=== PATIENT | female | born 1965 | race Caucasian/White ===

== ENCOUNTER 2018-01-08 22:17 | Emergency (ER) | payer BC ==
[2018-01-08] MEDS ORDERED: IPRATROPIUM-ALBUTEROL 3 ML NEB INHALATION STA (22:48)
--- NOTE | 2018-01-08 22:56 | ED ---
URI HPI - General Chief Complaint: Upper Respiratory Infection Stated Complaint: Congested Time Seen by Provider: 01/08/18 22:39 Source: patient, RN notes reviewed Mode of arrival: ambulatory Limitations: no limitations - History of Present Illness Initial Comments: This is a 52-year-old female who states she had the onset 3 days ago of sore throat or sinus pain sinus congestion plugged up ears a cough with yellow phlegm yellow rhinorrhea body aches. She states she did get a flu shot last week. She has a nausea vomiting diarrhea. She has fullness in her sinuses she states patient also states she has some right upper quadrant "liver pain" MD Complaint: fever, cough, sore throat, nasal congestion, other - Related Data Home Medications Medication Instructions Recorded Confirmed Acetaminophen [Tylenol] 650 mg PO Q4H PRN 01/08/18 01/08/18 Albuterol Nebulized [Ventolin 2.5 mg INHALATION RT-Q4H PRN 01/08/18 01/08/18 Nebulized] Calcium/Magnesium 2 tab PO TID PRN 01/08/18 01/08/18 Chlorpheniramine Maleate 4 mg PO Q4H PRN 01/08/18 01/08/18 [Chlor-Trimeton] FLUoxetine HCL [PROzac] 80 mg PO DAILY 01/08/18 01/08/18 Gabapentin [Neurontin] 300 mg PO QID 01/08/18 01/08/18 Hydrochlorothiazide [Hydrodiuril] 25 mg PO DAILY 01/08/18 01/08/18 Ibuprofen [Motrin] 600 mg PO Q6H PRN 01/08/18 01/08/18 Multivitamins, Thera [Multivitamin 1 tab PO DAILY 01/08/18 01/08/18 (formulary)] Propranolol [Inderal] 20 mg PO TID 01/08/18 01/08/18 Rylanta 30 ml PO Q4H PRN 01/08/18 01/08/18 Thiamine [Vitamin B-1] 100 mg PO DAILY 01/08/18 01/08/18 guaiFENesin [guaiFENesin Oral 200 mg PO Q4H PRN 01/08/18 01/08/18 Solution] traZODone HCL 50 - 150 mg PO HS 01/08/18 01/08/18 traZODone HCL [Desyrel] 50 - 100 mg PO HS 01/08/18 01/08/18 Previous Rx's Medication Instructions Recorded Amoxicillin/Potassium Clav 1 tab PO Q12HR #20 tab 01/09/18 [Augmentin 875-125 Tablet] Benzonatate [Tessalon Perles] 200 mg PO AC-TID #21 capsule 01/09/18 Allergies Allergy/AdvReac Type Severity Reaction Status Date / Time pioglitazone [From Actos] Allergy Dyspnea Verified 01/08/18 23:10 codeine AdvReac Nausea & Verified 01/08/18 23:10 Vomiting Review of Systems ROS Statement: Those systems with pertinent positive or pertinent negative responses have been documented in the HPI. ROS Other: All systems not noted in ROS Statement are negative. Past Medical History Past Medical History: Asthma Additional Past Medical History / Comment(s): Detox- alcohol History of Any Multi-Drug Resistant Organisms: None Reported Past Surgical History: Adenoidectomy, Bariatric Surgery, Orthopedic Surgery, Tonsillectomy Additional Past Surgical History / Comment(s): ENT Past Psychological History: Anxiety, Depression Smoking Status: Never smoker Past Alcohol Use History: Heavy Past Drug Use History: None Reported General Exam - General Exam Comments Initial Comments: This is a well-developed well-nourished awake alert oriented 3 female Limitations: no limitations General appearance: alert, in no apparent distress Head exam: Present: atraumatic, normocephalic, normal inspection Eye exam: Present: normal appearance, PERRL, EOMI. Absent: scleral icterus, conjunctival injection, periorbital swelling ENT exam: Present: other (Boggy swollen nasal mucosa both TMs are dull and mildly erythematous. Oropharynx reveals no exudates tonsils are absent) Neck exam: Present: normal inspection. Absent: tenderness, meningismus, lymphadenopathy Respiratory exam: Present: decreased breath sounds Cardiovascular Exam: Present: regular rate, normal rhythm, normal heart sounds. Absent: systolic murmur, diastolic murmur, rubs, gallop, clicks GI/Abdominal exam: Present: soft Extremities exam: Present: normal inspection, full ROM, normal capillary refill. Absent: tenderness, pedal edema, joint swelling, calf tenderness Back exam: Present: normal inspection Neurological exam: Present: alert, oriented X3, CN II-XII intact Psychiatric exam: Present: normal affect, normal mood Skin exam: Present: warm, dry, intact, normal color. Absent: rash Course Vital Signs 01/08/18 01/08/18 01/08/18 22:19 23:12 23:21 Temperature 100.4 F H Pulse Rate 89 89 91 Respiratory 22 16 16 Rate Blood Pressure 160/114 O2 Sat by Pulse 100 Oximetry Medical Decision Making - Medical Decision Making Reevaluation the patient after the updraft reveals increased aeration x-ray is negative influenza was negative patient does demonstrate evidence of a sinusitis and bronchitis. She will be placed on medication first dose be given in the emergency department. - Lab Data Lab Results 01/08/18 Range/Units 23:11 Influenza Type A RNA Not Detected (Not Detectd) Influenza Type B (PCR) Not Detected (Not Detectd) - Radiology Data Radiology results: report reviewed (I did review the imaging and report no acute findings.), image reviewed Disposition Clinical Impression: Sinusitis, Bronchitis Disposition: HOME SELF-CARE Condition: Good Instructions: Rhinosinusitis (ED), Acute Bronchitis (ED) Prescriptions: Amoxicillin/Potassium Clav [Augmentin 875-125 Tablet] 1 tab PO Q12HR #20 tab Benzonatate [Tessalon Perles] 200 mg PO AC-TID #21 capsule Is patient prescribed a controlled substance at d/c from ED?: No Referrals: Nonstaff,Physician [Primary Care Provider] - 1-2 days
--- NOTE | 2018-01-08 23:10 | XR ---
EXAMINATION TYPE: XR chest 2V DATE OF EXAM: 01/08/2018 COMPARISON: NONE HISTORY: Cough and congestion TECHNIQUE: Frontal and lateral views of the chest are obtained. FINDINGS: Heart and mediastinum are normal. Lungs are clear. Diaphragm is normal. Bony thorax appear s normal. IMPRESSION: Normal chest.
[2018-01-08 23:15] VITALS: RESP 16
[2018-01-09] MEDS ORDERED: BENZONATATE 100 MG CAP PO STA (00:15)
[2018-01-09] MEDS ORDERED: AMOXIC-POT CLAV 875-125MG 1 EACH TAB PO STA (00:15)
[2018-01-09] MEDS ORDERED: IBUPROFEN 800 MG TAB PO STA (00:37)
[2018-01-09] MEDS ORDERED: ACETAMINOPHEN TAB 500 MG TAB PO STA (00:39)
--- NOTE | 2018-01-09 00:39 | ED ---
Medical Decision Making - Medical Decision Making No cyanosis at did a bariatric surgery the patient cannot take Motrin that will be canceled he will get Tylenol - Lab Data Lab Results 01/08/18 Range/Units 23:11 Influenza Type A RNA Not Detected (Not Detectd) Influenza Type B (PCR) Not Detected (Not Detectd) Disposition Clinical Impression: Sinusitis, Bronchitis, Febrile illness, acute Disposition: HOME SELF-CARE Condition: Good Instructions: Acute Bronchitis (ED), Rhinosinusitis (ED) Prescriptions: Amoxicillin/Potassium Clav [Augmentin 875-125 Tablet] 1 tab PO Q12HR #20 tab Benzonatate [Tessalon Perles] 200 mg PO AC-TID #21 capsule Ibuprofen [Motrin] 600 mg PO Q6HR PRN #20 tab PRN Reason: Fever Is patient prescribed a controlled substance at d/c from ED?: No Referrals: Nonstaff,Physician [Primary Care Provider] - 1-2 days
[2018-01-09 00:42] VITALS: BP 147/85; PULSE 95; TEMP 101.7
== END 2018-01-09 00:51 | disposition home or self-care (01) ==
LOC: EC 22:17
DX: J32.9 Chronic sinusitis, unspecified (principal); J45.909 Unspecified asthma, uncomplicated; R11.2 Nausea with vomiting, unspecified; R19.7 Diarrhea, unspecified; F32.9 Major depressive disorder, single episode, unspecified; F41.9 Anxiety disorder, unspecified; Z79.899 Other long term (current) drug therapy; Z88.5 Allergy status to narcotic agent; Z88.8 Allergy status to other drugs, medicaments and biological substances; Z53.8 Procedure and treatment not carried out for other reasons
CPT/HCPCS: 71046; 87502; 94640; 99284